=== PATIENT | male | born 1980 | race Caucasian/White ===

== ENCOUNTER 2016-11-25 15:02 | Emergency (ER) | payer BC ==
[~2016-11-25] VITALS: Ht 180.3 cm; Wt 83.5 kg
[2016-11-25] MEDS ORDERED: CLONAZEPAM0.5 MG PO (15:14)
[2016-11-25] MEDS ORDERED: VENLAFAXINE HC150 M1 PO (15:14)
[2016-11-25 15:52] LABS: ADD MIUA? YES; BILIRUBIN NEGATIVE; BLOOD MODERATE; COLOR STRAW ((YELLOW)); GLUCOSE (STRIP) NEGATIVE; KETONES NEGATIVE; LEUKOCYTES NEGATIVE; NITRITE NEGATIVE; PROTEIN (STRIP) NEGATIVE; SPECIFIC GRAVITY 1.005 (1.000-1.030); UROBILINOGEN 0.2 MG/DL (0.2-1.0)
[2016-11-25 16:07] LABS: BACTERIA NONE SEEN /HPF; EPITHELIAL CELLS NONE SEEN /HPF; GRANULAR CASTS 0-5 /LPF; MUCUS NONE SEEN /LPF; RED BLOOD CELLS 0-5 /HPF (0-5); UCUL ADDED? NO; WHITE BLOOD CELLS 0-5 /HPF (0-5)
[2016-11-25 18:02] LABS: HEMATOCRIT 43.8 % (38.0-50.0); MCH 30.4 PG (29.0-34.0); MCV 89.4 FL (86-99); MEAN PLAT.VOLUME 10.8 uM^3 (9.0-12.4); PLATELET COUNT 241 K/uL (156-360); RBC DIS.WIDTH-CV 11.9 % (11.8-14.6); RBC DIS.WIDTH-SD 38.8 % (39-53); WHITE BLOOD COUNT 9.1 K/uL (4.1-10.2)
[2016-11-25 18:10] LABS: CHLORIDE 105 mEq/L (99-109); POTASSIUM 4.2 mEq/L (3.7-5.4); SODIUM 139 mEq/L (136-147)
[2016-11-25 18:12] LABS: GLUCOSE 89 mg/dL (70-99)
[2016-11-25 18:13] LABS: ANION GAP 8 MEQ/L (2-14)
[2016-11-25 18:14] LABS: TOTAL BILIRUBIN 0.6 mg/dL (0.0-1.0)
[2016-11-25 18:16] LABS: ALKALINE PHOSPHATASE 97 IU/L (3-129); GFR ESTIMATE (CALCULATED) > 59 mL/min/
[2016-11-25 18:17] LABS: UREA NITROGEN (BUN) 9 mg/dL (9-23)
[2016-11-25 18:19] LABS: LIPASE 51 U/L (1.0-51.0)
[2016-11-25] MEDS ORDERED: FLOMAX0.4 MG PO (18:39)
[2016-11-25] MEDS ORDERED: TORADOL10 MG PO (18:39)
[2016-11-25] MEDS ORDERED: ZOFRAN ODT4 MG PO (18:39)
[2016-11-25] MEDS ORDERED: MOTRIN800 MG PO (18:42)
[2016-11-25 19:06] VITALS: BP 124/89
== END 2016-11-25 19:10 | disposition home or self-care (01) ==
LOC: RME 15:02 → EME 15:02 → RME 19:10
PROVIDERS: Physician Assistant Medical
DX: N20.0 Calculus of kidney (principal)
CPT/HCPCS: 74176; 80053; 81003; 83690; 85027; 99281; 99285